=== PATIENT | female | born 1975 | race Caucasian/White ===

== ENCOUNTER 2021-03-20 00:04 | Emergency (ER) | payer OTHER ==
[~2021-03-20 00:04] MED LIST: TESSALON PERLE100 M1 PO
[2021-03-20 01:32] LABS: BASOPHIL 0.5 % (0-2); EOSINOPHIL 1.4 % (0-5); HCT 33.5 % (37.0-47.0); LYMPHOCYTE 17.9 % (15-48); MCH 27.4 pg (25.0-31.0); MCHC 32.8 g/dL (32.0-36.0); MCV 83.5 fL (78.0-100.0); MONOCYTE 9.6 % (0-12); NEUTROPHIL 70.1 % (41-80); NRBC 0; PLT 190 K/uL (150-400); RBC 4.01 M/uL (4.20-5.40); RDW 13.5 % (11.5-14.0); WBC 5.5 K/uL (4.0-10.5)
[2021-03-20 01:38] LABS: INR 1.02 (0.9-1.2); PROTHROMBIN TIME 12.8 SECONDS (11.8-13.4); PTT 27.5 SECONDS (24.4-34.7)
[2021-03-20 01:39] LABS: D-DIMER 1.06 ug/mLFEU (0.00-0.41)
[2021-03-20 01:46] LABS: ALBUMIN 3.1 g/dL (3.4-5.0); BILIRUBIN - TOTAL 0.4 mg/dL (0.2-1.0); BUN/CREAT RATIO (CALC) 14.7 RATIO; CREATININE 0.68 mg/dL (0.51-0.95); GLOBULIN (CALCULATION) 3.8 g/dL; POTASSIUM 3.7 mmol/L (3.5-5.1); TOTAL PROTEIN 6.9 g/dL (6.4-8.2)
[2021-03-20 02:01] LABS: PRO-BNP 97 pg/mL (<125)
== END 2021-03-20 04:05 | disposition home or self-care (01) ==
LOC: FER 00:04
PROVIDERS: Emergency Medicine Emergency Medical Services
DX: R07.89 Other chest pain (principal); I10 Essential (primary) hypertension
CPT/HCPCS: 36415; 71045; 71275; 80053; 83690; 83880; 84484; 85025; 85379; 85610; 85730; 86140; 93005; J1885; J2270; J2405; J2930; Q9967